=== PATIENT | female | born 1995 | race Caucasian/White ===

== ENCOUNTER 2017-03-27 02:59 | Observation (INO) ==
[2017-03-27] MEDS ORDERED: Clindamycin 900 MG/50 ML 900 MG/50 ML IV.SOLN IVPB ONE (06:30)
[2017-03-27] MEDS ORDERED: 0.9 % Sodium Chloride 1,000 ML IVC ONE (06:32)
[2017-03-27] MEDS ORDERED: *HR* HYDROmorphone (PF) 1 MG/ML SYRINGE IVP ONE (06:43)
[2017-03-27] MEDS ORDERED: Ondansetron 4 MG/2 ML VIAL IVP ONE (06:43)
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
[2017-03-27 07:10] LABS: Prothrombin Time 11.2 Seconds (9.4-12.1)
[2017-03-27 08:05] LABS: Basophils % 0.5 %; Eosinophils # 0.2 K/mcL (0.0-0.6); Eosinophils % 2.3 %; Hematocrit 35.1 % (35.3-44.9); Hemoglobin 11.7 g/dL (11.5-15.4); Immature Granulocytes % 0.3 % (0-4); Lymphocytes % 46.2 %; Mean Corpuscular HGB Conc 33.3 g/dL (31.6-35.5); Monocytes # 0.6 K/mcL (0.0-1.3); Monocytes % 9.2 %; Neutrophils # 2.7 K/mcL (1.6-8.9); Nucleated Red Blood Cells 0.3 /100 WBC (0); Platelet Count 302 K/mcL (140-400); Red Blood Count 4.18 M/mcL (3.82-4.97); Segmented Neutrophils % 41.5 %
[2017-03-27 08:19] LABS: BUN/Creatinine Ratio 20 (6-26); Blood Urea Nitrogen 10 mg/dL (6-20); Calcium 8.9 mg/dL (8.6-10.3); Carbon Dioxide 21 mEq/L (23-29); Chloride 109 mEq/L (98-107); Glucose 96 mg/dL (70-105); Osmolality,Calculated 285 (280-300); Sodium 138 mEq/L (136-145); eGFR For African Americans > 60 (> 60); eGFR For Non-African Americans > 60 (> 60)
--- NOTE | 2017-03-27 14:31 | Internal Med History&Physical ---
<Kishan Kapadia J - Last Filed: 03/27/17 15:13> Date of Encounter: 03/27/17 Time of Encounter: 14:25 Assessment and Plan (1) Otitis media Current visit: Yes Status: Acute Suppurative otitis media. Ct head on 03/25/17 show mastoiditis but no periostitis. Upon exam the external ear is mildly tender to palpation, external canal clear debris, foreign-body and/or drainage at this time. Internal ear kettle tender mildly erythematous. I was able to visualize tympanic membrane which appears swollen and erythematous and no drainage present at this time. I have contacted ENT Dr. Yusuf who recommends outpatient treatment with otic drops and oral ATB. I have made an appointment for this patient on 04/01/[address] Yusuf of ENT. She is being discharged home with Ciprofloxacin 500mg PO BID x5 days and ofloxacin otic drops 10ggt in Rt ear at . Qualifiers: Otitis media type: suppurative Chronicity: acute Laterality: left Recurrence: not specified as recurrent Spontaneous tympanic membrane rupture: with spontaneous rupture Qualified Code(s): H66.012 - Acute suppurative otitis media with spontaneous rupture of ear drum, left ear (2) Mastoiditis Current visit: Yes Status: Acute Qualifiers: Laterality: right Qualified Code(s): H70.91 - Unspecified mastoiditis, right ear Internal Medicine - H&P: HPI Chief complaint: ear pain, with yellow and blood drainage Admitted From: Home Plans for Post Hospital Care: Home History of present illness: Ms. Salmon is a 21 year old female with a PMH of PCO S/anxiety/chronic low back pain/multiple spine surgeries/factor V deficiency/DVTs/PE who presents to [facility] today with worsening right ear pain, fevers, chills, nausea and vomiting. She states that this is the third time she has been to the ED this week d/t continued ear pain. She was initially given azithromycin with no improvement, and the given keflex to which she had taken a total of 3 days with no improvement. Upon discharge from the ED she was told to make an appointment with ENT but she has yet to see them. She reports that the pain is increasing and now she is draining yellow and blood fluid from her rt ear. She was informed by Dr. Theo to return to the ED should her symptoms persist or worsen before her appointment with ENT. She admits to dizziness, h/a, ear pain, and fevers with a max temp of 101.2. She is being discharged home on oral ATB and otic gtts. See assessment and plan Past Med Surg Social Fam HX - Past Medical History Medical history: asthma, pulmonary embolus, other Psychiatric history: anxiety, depression, previous psychiatric hospitalization - Past Surgical History Surgical History: cholecystectomy, orthopedic, other, other - Social History Smoking Status: Never smoker Smokeless Tobacco Status: No Alcohol use: none Drug use: none - Family History Mother Age: 39 Living Status: Still Living Hx Family Cardiac Disorders: No Hx Family Respiratory Disorders: No Hx Family Cancer: No Hx Family GI Disorders: No Hx Family Genitourinary Disorders: No Hx Family Endocrine Disorder: No Hx Family Musculoskeletal Disorders: No Hx Family Neuromuscular Disorders: No Hx Family Neurologic Disorders: No Hx Family HEENT Disorders: No Internal Medicine - H&P: Meds Cephalexin [Keflex] 500 mg PO QID #14 capsule 03/25/17 [Rx] HYDROcodone/Acet 5/325 mg [[place] 5-325 mg] 1 tab PO Q4H PRN #10 tab 03/25/17 [Rx ] Apixaban [Eliquis] 5 mg PO BID 03/27/17 [History] Ciprofloxacin [Cipro] 500 mg PO BID #10 tablet 03/27/17 [Rx] Ofloxacin *EAR* Drops [Floxin] 10 drop RIGHT EAR HS #1 bottle 03/27/17 [Rx] 3 Allergy/AdvReac Type Severity Reaction Status Date / Time Amoxicillin Allergy Anaphylaxis Verified 03/27/17 08:05 fentanyl Allergy Hives Verified 03/25/17 02:22 orphenadrine [From Norflex] Allergy Hives Verified 03/25/17 02:22 pregabalin [From Lyrica] Allergy Hives Verified 03/25/17 02:22 dexamethasone [From Decadron] AdvReac Vomiting Verified 03/25/17 02:22 ketorolac [From Toradol] AdvReac Vomiting Verified 03/27/17 08:05 meloxicam [From Mobic] AdvReac Nausea Verified 03/25/17 02:22 plastic tape AdvReac Rash Uncoded 03/25/17 02:22 All Systems PM: A 10-system review of systems was performed and is negative for pertinent findings except as documented above in the HPI. Review of systems: REVIEW OF SYSTEMS GENERAL: Positive for nausea, vomiting which began this morning. Additionally she admits to chills and a fever with a max temperature of 101.2 NEUROLOGIC: Negative for any blurry vision, blind spots, double vision, facial asymmetry, dysphagia, dysarthria, hemiparesis, hemisensory deficits, vertigo, ataxia. HEENT: Negative for any head trauma, neck trauma, neck stiffness, photophobia, phonophobia, sinusitis, rhinitis, lymph node enlargement. Positive for right ear pain, yellow and bloody drainage. Positive for right jaw and neck pain. CARDIAC: Negative for any chest pain, dyspnea on exertion, paroxysmal nocturnal dyspnea, peripheral edema. PULMONARY: Negative for any shortness of breath, wheezing, COPD, or TB exposure. GASTROINTESTINAL: Negative for any abdominal pain, nausea, vomiting, bright red blood per rectum, melena. GENITOURINARY: Negative for any dysuria, hematuria, incontinence. INTEGUMENTARY: Negative for any rashes, cuts, insect bites. RHEUMATOLOGIC: Negative for any joint pains, photosensitive rashes, history of vasculitis or kidney problems. HEMATOLOGIC: Negative for any abnormal bruising, frequent infections or bleeding. - Constitutional Vitals: Temp Pulse Resp BP Pulse Ox 97.3 F L 93 17 112/72 99 03/27/17 10:37 03/27/17 10:37 03/27/17 10:37 03/27/17 10:37 03/27/17 10:37 General appearance: Present: cooperative, mild distress, A&O X 3, answers questions appropriately - Head Head exam: Present: atraumatic, normocephalic - Eye Eye exam: Present: PERRL, conjuntiva pink, sclera anicteric Pupils: Present: PERRL - ENT ENT exam: Present: mucous membranes moist, normal external ear exam, normal oropharynx - Expanded ENT Exam bulging: Right TM, canal discharge: Right TM, canal tenderness: Right TM, loss of landmarks: Right TM - Neck Neck exam general surgery: Present: tenderness (Right neck and right jaw), supple, trachea midline. Absent: lymphadenopathy - Respiratory Respiratory exam: Present: CTAB. Absent: accessory muscle use, rales, rhonchi, wheezes - Cardiovascular Cardiovascular exam: Present: RRR, +S1, +S2. Absent: diastolic murmur, gallop, rubs, systolic murmur - GI/Abdominal GI/Abdominal exam: Present: normal bowel sounds, soft, no peritoneal signs. Absent: distended, tenderness - Extremities Exam Extremities exam: Present: warm, radial pulses palpable and symmetrical. Absent : calf tenderness, cyanotic, pedal edema - Neurological Exam Neurological exam: Present: alert, oriented X3. Absent: pronater drift, facial droop, speech deficit Internal Med - H&P Results - Labs CBC & Chem 7: 03/27/17 07:59 03/27/17 07:59 Labs: Short CBC 03/27/17 Range/Units 07:59 WBC 6.5 (4.3-11.1) K/mcL Hgb 11.7 (11.5-15.4) g/dL Hct 35.1 L (35.3-44.9) % Plt Count 302 (140-400) K/mcL Neutrophils # 2.7 (1.6-8.9) K/mcL BMP 03/27/17 07:59 Sodium 138 Potassium 5.0 Chloride 109 H Carbon Dioxide 21 L BUN 10 Creatinine 0.51 L Glucose 96 Calcium 8.9 <Don Go T - Last Filed: 03/27/17 16:00> Date of Encounter: 03/27/17 Internal Medicine - H&P: HPI History of present illness: Ms. Salmon is a 21 year old female All Systems PM: A 10-system review of systems was performed and is negative for pertinent findings except as documented above in the HPI. - Constitutional Vitals: Temp Pulse Resp BP Pulse Ox 98.3 F 100 16 116/79 98 03/27/17 15:27 03/27/17 15:27 03/27/17 15:27 03/27/17 15:27 03/27/17 15:27 Internal Med - H&P Results - Labs CBC & Chem 7: 03/27/17 07:59 03/27/17 07:59 Labs: Short CBC 03/27/17 Range/Units 07:59 WBC 6.5 (4.3-11.1) K/mcL Hgb 11.7 (11.5-15.4) g/dL Hct 35.1 L (35.3-44.9) % Plt Count 302 (140-400) K/mcL Neutrophils # 2.7 (1.6-8.9) K/mcL BMP 03/27/17 07:59 Sodium 138 Potassium 5.0 Chloride 109 H Carbon Dioxide 21 L BUN 10 Creatinine 0.51 L Glucose 96 Calcium 8.9 - Attending Attestation I examined this patient on 03/27/17 and my medical decision-making was reviewed with the Certified nurse practitioner. I agree with the documented findings, disposition and treatment plan as described except to the extent set forth below. Patient with right OM, no sepsis, no SIRS, afebrile, no leukocytosis, head CT does not show ENT plans no intervention, recommends po meds, discharge patient home, educated on need for compliance with antibiotics, patient seems more obsessed with pain meds at this time. Follow up with ENT on 04/01
[2017-03-27 15:28] VITALS: BP 116/79
== END 2017-03-27 16:16 | disposition home or self-care (01) ==
LOC: EMEROO 02:59 → 3BNU 02:59
PROVIDERS: ADMIT Internal Medicine; ATTEND Registered Nurse

== ENCOUNTER → 2018-06-21 14:42 | Observation (INO) ==
[2018-06-21 13:50] LABS: Bilirubin,Urine Negative (Negative); Blood,Urine Negative (Negative); Clarity,Urine Clear (Clear); Color,Urine Yellow (Yellow); Glucose,Urine (UA) Normal (Normal); Ketones,Urine Negative (Negative); Leukocyte Esterase,Urine Moderate (Negative); Nitrite,Urine Negative (Negative); Protein,Urine Negative (Neg-Trace); Specific Gravity,Urine 1.018 (1.010-1.025); Urobilinogen,Urine Normal (Normal)
[2018-06-21 13:52] LABS: Bacteria,Urine None Seen per hpf (None-Few); Hyaline Casts,Urine None Seen per lpf (None-Few); RBC,Urine 0-3 per hpf (0-3); Squamous Epithelial Cell,Urine Many per lpf (None-Few); WBC,Urine 15-30 per hpf (0-3)
[2018-06-21 14:04] LABS: Amphetamine Screen,Urine Negative ng/mL (Cutoff=1000); Barbiturate Screen,Urine Negative ng/mL (Cutoff=200); Benzodiazepines Screen,Urine Negative ng/mL (Cutoff=200); Cannabinoid Screen,Urine Negative ng/mL (Cutoff = 50); Cocaine Screen,Urine Negative ng/mL (Cutoff= 300); Opiate Screen,Urine Negative ng/mL (Cutoff=300); Phencyclidine Screen,Urine Negative ng/mL (Cutoff=25)
--- NOTE | 2018-06-21 14:36 | OB/GYN Progress Note ---
Date of Encounter: 06/21/18 Time of Encounter: 14:34 Objective - Vital Signs Vital Signs: Intake and Output 06/20/18 06/21/18 06/21/18 23:59 07:59 15:59 Other: Weight 81.3 kg Patient Weight 06/21/18 23:59 Weight 81.3 kg - Labs Labs: Abnormal lab results Ur Leukocyte Esterase Moderate (Negative) H 06/21/18 13:30 Urine Microscopic WBC 15-30 per hpf (0-3) H 06/21/18 13:30 Ur Squamous Epith Cells Many per lpf (None-Few) H 06/21/18 13:30 Ur Culture Indicated? NO. (NO) A 06/21/18 13:30
--- NOTE | 2018-06-21 14:57 | OB/GYN Progress Note ---
Date of Encounter: 06/21/18 Time of Encounter: 14:55 - Assessment and Plan (1) 27 weeks gestation of Status: Acute (2) uterine contractions in second trimester, antepartum Status: Acute Cervix closed thick and high, discharged home with labor and when to return to triage precautions. Patient verbalizes understanding Subjective - Subjective Interval history: 27+3 weeks gestation reports to triage with complaints of contractions. Patient states she was having contractions every 3 minutes last night, has decreased in intensity and frequency during the day and hourly happening occasionally. Reports good movement, denies vaginal bleeding or leaking of fluid Antepartum ROS: movement normal, contractions, no loss of fluid, no vaginal bleeding Objective - Vital Signs Vital Signs: Intake and Output 06/20/18 06/21/18 06/21/18 23:59 07:59 15:59 Other: Weight 81.3 kg Patient Weight 06/21/18 23:59 Weight 81.3 kg - Exam FHR comments: Baseline 140 Cervical dilation: Closed/thick/high - Labs Labs: Abnormal lab results Ur Leukocyte Esterase Moderate (Negative) H 06/21/18 13:30 Urine Microscopic WBC 15-30 per hpf (0-3) H 06/21/18 13:30 Ur Squamous Epith Cells Many per lpf (None-Few) H 06/21/18 13:30 Ur Culture Indicated? NO. (NO) A 06/21/18 13:30
== END | disposition home or self-care (01) ==
LOC: 1NENULAB
PROVIDERS: ADMIT Advanced Practice Midwife; ATTEND Advanced Practice Midwife

== ENCOUNTER → 2018-08-05 01:45 | Observation (INO) ==
--- NOTE | 2018-08-05 01:09 | OB/GYN Progress Note ---
Date of Encounter: 08/05/18 Time of Encounter: 01:05 - Assessment and Plan (1) 33 weeks gestation of Current Visit: Yes Status: Acute (2) Abdominal pain affecting Current Visit: Yes Status: Acute rare contractions on toco. SVE closed. UA + nitrites. Discharge home with Keflex rx. Return precautions given. (3) Acute cystitis during in third trimester Current Visit: Yes Status: Acute UA with +nitrites. Discharge home with rx. Subjective - Subjective Interval history: 23 year-old G1 presenting at 33w6d with c/o cramping, pelvic pressure, and lumps in both breasts. She denies leaking or bleeding. No change in movement. Breasts also have some yellow fluid leaking bilaterally. No significant redness or warmth. No fevers. She reports the cramping pain started last evening and is maybe 3-4 times per hour. She also has constant pelvic pressure. complicated by history of IV drug use now on subutex, Factor 5, history of PE, anxiety. Antepartum ROS: movement normal, contractions, no loss of fluid, no vaginal bleeding Objective - Vital Signs Vital Signs: Intake and Output 08/04/18 08/04/18 08/05/18 15:59 23:59 07:59 Other: Weight 88.054 kg Patient Weight 08/05/18 23:59 Weight 88.054 kg - Exam FHR: category 1 FHR comments: 140 BPM, reactive NST Auscultation: bilateral: normal Abdomen: Present: soft, gravid Uterus: Absent: tenderness Cervical dilation: closed/50/high Comments: Breasts with some filling, no s/sx mastiits, no isolated lumps.
[2018-08-05 01:10] LABS: Bilirubin,Urine Negative (Negative); Blood,Urine Negative (Negative); Clarity,Urine Cloudy (Clear); Color,Urine Yellow (Yellow); Glucose,Urine (UA) Normal (Normal); Ketones,Urine Negative (Negative); Leukocyte Esterase,Urine Moderate (Negative); Nitrite,Urine Positive (Negative); PH,Urine 6.5 pH Units (5.0-8.0); Protein,Urine Negative (Neg-Trace); Specific Gravity,Urine < 1.005 (1.010-1.025); Urobilinogen,Urine Normal (Normal)
[2018-08-05 01:13] LABS: Bacteria,Urine Few per hpf (None-Few); Hyaline Casts,Urine None Seen per lpf (None-Few); RBC,Urine 0-3 per hpf (0-3); Squamous Epithelial Cell,Urine Many per lpf (None-Few)
[2018-08-05 01:19] LABS: Amphetamine Screen,Urine Negative ng/mL (Cutoff=1000); Barbiturate Screen,Urine Negative ng/mL (Cutoff=200); Benzodiazepines Screen,Urine Negative ng/mL (Cutoff=200); Cannabinoid Screen,Urine Negative ng/mL (Cutoff = 50); Cocaine Screen,Urine Negative ng/mL (Cutoff= 300); Opiate Screen,Urine Negative ng/mL (Cutoff=300); Phencyclidine Screen,Urine Negative ng/mL (Cutoff=25)
[2018-08-05 01:22] LABS: WBC,Urine 15-30 per hpf (0-3)
== END | disposition home or self-care (01) ==
LOC: 1NENULAB
PROVIDERS: ADMIT Registered Nurse; ATTEND Registered Nurse

== ENCOUNTER 2018-08-31 19:53 | Observation (INO) ==
[2018-08-31 20:42] LABS: Amphetamine Screen,Urine Negative ng/mL (Cutoff=1000); Barbiturate Screen,Urine Negative ng/mL (Cutoff=200); Benzodiazepines Screen,Urine Negative ng/mL (Cutoff=200); Cannabinoid Screen,Urine Negative ng/mL (Cutoff = 50); Cocaine Screen,Urine Negative ng/mL (Cutoff= 300); Opiate Screen,Urine Negative ng/mL (Cutoff=300); Phencyclidine Screen,Urine Negative ng/mL (Cutoff=25)
--- NOTE | 2018-08-31 21:30 | OB/GYN Progress Note ---
Date of Encounter: 09/06/18 Time of Encounter: 21:25 - Assessment and Plan (1) Decreased movement Status: Acute Meghan is a 23 y/o @ 37+3 weeks, Decreased FM, Left calf pain, Heterozygous 5 Leiden mutation(on Lovenox 80mg BID) Plan: patient reports that when she presented to L&D, she started feeling movement, NST reactive, she reported left calf pain, I examined her and both calves are symmetric without erythema or warmth, dopplers done and normal ok for discharge to follow up outpatient Qualifiers: Fetus number: single or unspecified fetus Trimester: third trimester Qualified Code(s): O36.8130 - Decreased movements, third trimester, not applicable or unspecified Objective - Vital Signs Vital Signs: Intake and Output 08/31/18 08/31/18 08/31/18 07:59 15:59 23:59 Other: Weight 89.6 kg Patient Weight 08/31/18 23:59 Weight 89.6 kg
== END 2018-08-31 23:20 | disposition home or self-care (01) ==
LOC: 1NENULAB
PROVIDERS: ADMIT Student in an Organized Health Care Education/Training Program; ATTEND Student in an Organized Health Care Education/Training Program

== ENCOUNTER 2018-09-10 03:36 | Inpatient (IN) ==
[2018-09-10] MEDS ORDERED: Metoclopramide 10 MG/2 ML VIAL IVP PRN (03:49)
[2018-09-10] MEDS ORDERED: Ondansetron 4 MG/2 ML VIAL IVP PRN (03:49)
[2018-09-10] MEDS ORDERED: Famotidine 20 MG/2 ML VIAL IVP PRN (03:49)
[2018-09-10] MEDS ORDERED: Naloxone 0.4 MG/ML INJ IVP PRN (03:49)
[2018-09-10] MEDS ORDERED: Ringers Solution, Lactated 1,000 ML IVC SCH (04:00)
[2018-09-10] MEDS ORDERED: Oxytocin 20 units/ LR 1000 mL 20 UNIT/1,000 ML BAG IVC SCH ×2 (04:00→16:47)
[2018-09-10 04:49] LABS: Basophils % 0.2 %; Eosinophils # 0.3 K/mcL (0.0-0.6); Eosinophils % 2.8 %; Hematocrit 36.3 % (35.3-44.9); Immature Granulocytes % 0.8 % (0-4); Lymphocytes # 2.9 K/mcL (0.6-4.6); Lymphocytes % 24.3 %; Mean Corpuscular HGB Conc 33.1 g/dL (31.6-35.5); Mean Corpuscular Hemoglobin 28.9 pg (28.0-33.3); Mean Corpuscular Volume 87.5 fL (83.0-100.0); Mean Platelet Volume 10.7 fL (9.4-12.4); Monocytes # 0.8 K/mcL (0.0-1.3); Neutrophils # 7.7 K/mcL (1.6-8.9); Platelet Count 267 K/mcL (140-400); Red Blood Count 4.15 M/mcL (3.82-4.97); Red Cell Distribution Width 12.9 % (11.5-14.5); Segmented Neutrophils % 64.9 %; White Blood Count 11.8 K/mcL (4.3-11.1)
[2018-09-10] MEDS: miSOPROStol 25 MCG TABLET VG PRN ×2 (04:56→09:10)
[2018-09-10 04:59] LABS: Amphetamine Screen,Urine Negative ng/mL (Cutoff=1000); Barbiturate Screen,Urine Negative ng/mL (Cutoff=200); Benzodiazepines Screen,Urine Negative ng/mL (Cutoff=200); Cannabinoid Screen,Urine Negative ng/mL (Cutoff = 50); Cocaine Screen,Urine Negative ng/mL (Cutoff= 300); Opiate Screen,Urine Negative ng/mL (Cutoff=300); Phencyclidine Screen,Urine Negative ng/mL (Cutoff=25)
--- NOTE | 2018-09-10 05:15 | Event Note ---
Date of Encounter: 09/10/18 Time of Encounter: 05:13 Discussed cervical ochoa balloon placement for induction, patient agrees to proceed along with vaginal cytotec. Double cervical ochoa balloon placed with minimal difficulty. 60mL instilled into uterine balloon, 60mL instilled into vaginal balloon. Patient tolerated without difficulty.
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
--- NOTE | 2018-09-10 07:42 | Anesthesia Evaluation PreOp ---
Date of Encounter: 09/10/18 Time of Encounter: 07:40 - Past History Planned Operation: Induction/GETA Cardiac History: Denies any Significant Hx Pulmonary History: Denies Any Significant HX BUSINESS SOLUTION ANALYST History: Denies Any Significant HX Other Medical History: Bleeding (Factor V Leiden, Multipe PE's, Drug abuse, on Subutex) Anesthesia History: No Prior Anesthetic Complications, Past Anesthesia (Gallbladder, Back surgeries x3) : Yes (39weeks) Alcohol Use: none Drug use: none, cocaine, opiates, marijuana, methamphetamine, IV Drug Use, prescription drug abuse Medications and Allergies Buprenorphine HCl [Subutex] 10 mg SL BID 06/03/18 [History] Enoxaparin [Lovenox] 80 mg SQ Q12HR 07/08/18 [History] Allergy/AdvReac Type Severity Reaction Status Date / Time amitriptyline Allergy See Verified 09/10/18 04:11 Comments Amoxicillin Allergy Anaphylaxis Verified 07/08/18 22:12 baclofen Allergy See Verified 09/10/18 04:13 Comments citalopram [From Celexa] Allergy Vomiting Verified 09/10/18 04:13 duloxetine [From Cymbalta] Allergy Nausea Verified 09/10/18 04:13 fentanyl Allergy Hives Verified 07/08/18 22:12 gabapentin [From Neurontin] Allergy Nausea Verified 09/10/18 04:13 orphenadrine [From Norflex] Allergy Hives Verified 07/08/18 22:12 pregabalin [From Lyrica] Allergy Hives Verified 07/08/18 22:12 dexamethasone [From Decadron] AdvReac Vomiting Verified 07/08/18 22:12 ketorolac [From Toradol] AdvReac Vomiting Verified 07/08/18 22:12 meloxicam [From Mobic] AdvReac Nausea Verified 07/08/18 22:12 AMITR Allergy See Uncoded 09/10/18 04:11 Comments plastic tape AdvReac Rash Uncoded 07/08/18 22:12 - Meds/Allergy Pre-op Review Medications Reviewed: Yes Allergies Reviewed: Yes Beta Blockers on Current Med List: No Anesthesia Results - Labs 09/10/18 04:15 Anesthesia Exam O2 Sat Height 1.68 m Weight 89.267 kg Vital Signs Temp Pulse Resp BP 98.2 F 77 15 123/84 09/10/18 03:49 09/10/18 03:49 09/10/18 03:49 09/10/18 03:49 NPO (# of Hours): 5 Pain Scale: 2 Pain Scale Used: Numeric (1 - 10) - HEENT Pupil (Motor): Pupils equal Mallampati: II Teeth: Normal Oral Opening: Greater than 3 - BUSINESS SOLUTION ANALYST LOC: Oriented BUSINESS SOLUTION ANALYST Motor: Normal RUE, Normal LUE, Normal RLE, Normal LLE, Normal Face BUSINESS SOLUTION ANALYST Sensory: Normal: RUE, LUE, RLE, LLE, Face - Cardiac Rhythm: Regular Murmur: None JVD: No Carotid Bruit: No - Pulmonary Breath Sounds: bilateral Clear Respiratory Effort: Symmetrical Anesthesia Assess/Plan ASA Score: 3 (Factor V, Drug Abuse, PEs) Level of consciousness: Cooperative, Oriented Anesthetic Plan: General (Pt understands all risks and benefits of GETA/all questions answered/ understands why no epidural or spinal can be done given the risks/understands need for general if a c/s would be done) Reason for No Neuroaxial/Regional Block: Other (See below) Autologous Blood: Yes Monitoring Plan: Standard Monitors Recovery Plan: PACU Anes Supervising Prov Stmt: NOTE FROM DR. KESSLER CONSULT 07/29/18 13:18 Patent is a 23 y/o female EDC 09/16/2018, who presents for Anesthesia consult concerning epidural anesthesia for anticipated vaginal delivery. Patient states that she has had 3 prior lumbar/sacral spine surgeries.The first surgery was a L 4/5 Laminectomy in 2011, followed by an L5/S1 laminectomy, and a L5/S1 instrumented Fusion. Scar formation from the surgeries appear to start at L2/3 and end below L5. She also states that she still has numbness from her Left buttock down her Left leg to Left ankle. She was told that an epidural would not be advisable due to her altered anatomy from the prior surgeries and the fact that she is still symptomatic with radiculopathy, and more damage could be done by performing that procedure. If a was necessary A General Anesthetic would be performed. Patient understood risks of the procedure and agreed with decision not to have epidural for delivery.
[2018-09-10] MEDS ORDERED: *HR* Buprenorphine HCl 8 MG TAB.SUBL SL SCH ×2 (09:00→15:00)
--- NOTE | 2018-09-10 11:24 | OB Labor Progress Note ---
Date of Encounter: 09/10/18 Time of Encounter: 11:22 Labor Progress Note - Subjective Subjective: Patient is in pain, given subutex @ 9AM, cytotec #2 also given. Per Anesthesia, she'll not receive epidural because of the rods in her back. - Vital Signs Vital Signs: VSS - Cervix Cervix: ochoa in place, tugged and still in tightly - Heart Tones Heart Tones: 130/mod yarelis/+accels, no decels - Captiva Captiva: irreg - Interventions Interventions: Continue monitoring the strip, I'm concerned about the patient's pain tolerance since she has been told no epidural and no narcotics, I'll continue to monitor her progress, FHT CAT 1
[2018-09-10] MEDS ORDERED: Ondansetron 4 MG/2 ML VIAL ONE (12:43)
[2018-09-10] MEDS ORDERED: Dexamethasone 4 MG/ML VIAL ONE (12:43)
[2018-09-10] MEDS ORDERED: *HR* Propofol 200 MG/20 ML VIAL IVP ONE (12:44)
[2018-09-10] MEDS ORDERED: *HR* Rocuronium Bromide 50 MG/5 ML VIAL ONE (12:45)
[2018-09-10] MEDS ORDERED: *HR* Succinylcholine 200 MG/10 ML VIAL IVP ONE (12:45)
[2018-09-10] MEDS ORDERED: Lidocaine -MPF 2% 5 ML VIAL ONE (12:45)
[2018-09-10] MEDS ORDERED: Ringers Solution, Lactated 1,000 ML ONE (12:46)
[2018-09-10] MEDS ORDERED: *HR* Oxytocin 10 UNIT/ML VIAL IM ONE (12:46)
--- NOTE | 2018-09-10 12:49 | OB Labor Progress Note ---
Date of Encounter: 09/10/18 Time of Encounter: 12:47 Labor Progress Note - Subjective Subjective: Was called into the room because the patient was crying that she could not take the pain anymore and wants a section. - Vital Signs Vital Signs: VSS - Cervix Cervix: Florez bulb still tightly placed but removed upon request - Heart Tones Heart Tones: 125/mod yarelis/+accels, no decels - [place]: irreg - Interventions Interventions: I sympathized with the patient since she can't receive opiods because of her Subutex and Anesthesia will not give epidural because of the rods in her back, discussed and consents signed along with risks, Anesthesia informed, will proceed to
[2018-09-10] MEDS ORDERED: Ketamine *HR* 500 MG/10 ML MDV ONE (13:38)
[2018-09-10] MEDS ORDERED: *HR* Midazolam HCl 2 MG/2 ML VIAL ONE (13:39)
--- NOTE | 2018-09-10 14:23 | OB/GYN Procedure Note ---
OB-HAND CROCHETER: Procedure - Diagnosis Date of procedure: 09/10/18 Pre-op diagnosis: section on maternal request, inability to tolerate pain Post-op diagnosis: same - Procedure Procedure: Primary ection
[2018-09-10] MEDS ORDERED: Acetaminophen IV 1,000 MG/100 ML INFUS..BTL IVPB ONE (14:25)
[2018-09-10] MEDS ORDERED: traMADol 50 MG TABLET PO PRN ×2 (14:25→15:22)
--- NOTE | 2018-09-10 14:25 | OB/GYN Procedure Note ---
Section - Date of procedure: 09/10/18 Preop diagnosis: other ( section per maternal request, inability to tolerate pain) Post-op diagnosis: same Procedure: section, primary low transverse Surgeon: Rhoda Meyers Quantitated Blood Loss: 600 Was there an commercial loan assistant present: Yes Supervising Chef: Prabhjot Bentley Anesthesia Type: General section complications: none Disposition: L&D Recovery Room Specimens: Placenta, Cord blood - (s) Infant A Delivery Date: 09/10/18 Infant Delivery Time: 13:34 Presentation: vertex Gender: Male Gram Weight: 2.99 kg at 1 minute: 8 at 5 minutes: 9 Shoulder Dystocia: not encountered Specimens collected: cord blood Placenta: complete extraction - Narrative Narrative: After the patient was brought to the OR, she was prepped and draped in normal fashion, in the supine position, for surgery. After timeout, she was then placed under general anesthesia. A Pfannenstiel incision was then made using a scalpel and carried through the subcutaneous tissue and fascial layers. The fascia was elevated using Kochers x2 and the rectus abdominus muscles were dissected from the fascia using blunt dissection. The recti were in the midline and the parietal peritoneum was entered bluntly. A bladder blade was placed and a lo w transverse uterine incision was made using a scalpel. Amniotomy was created with clear fluid. The incision was extended manually. The was delivered atraumatically. The babys mouth and nose were suctioned using bulb suction. The cord was clamped x2 and cut. The baby was handed off to the awaiting nurse. Cord blood was obtained x1. Vessels were identified x3. The placenta was delivered intact. Products of conception were removed using a clean dry lap. The uterus was closed in 2 layers of 0 Vicryl, the first being a continuous interlocking stitch, the second of which imbricated the first. Adequate hemostasis was realized. The fascial layer was closed using #0-vicryl. Subcutaneous tissue was closed with 3-0 vicryl. The skin was closed with a subcuticular stitch of 4-0 Vicryl. Sponge, lap, needle and instrument counts were all completely correct at the end of the procedure. Estimated blood loss was 600 mL. The patient and tolerated the procedure fairly well.
[2018-09-10] MEDS ORDERED: Acetaminophen 325 MG TABLET PO PRN (16:47)
[2018-09-10] MEDS ORDERED: Rho Immune Globulin 1,500 UNIT SYRINGE IM PRN (16:47)
[2018-09-10] MEDS ORDERED: Measles/Mumps/Rubella Vacc 0.5 ML VIAL SQ PRN (16:47)
--- NOTE | 2018-09-10 17:04 | Anesthesia Evaluation Post Op ---
Date of Encounter: 09/10/18 Time of Encounter: 17:03 - Lungs Lungs: Clear Ascult./Percussion - Airway Airway: Non-obstructed - Cardiovascular Regular Rate, Baseline Rhythm - Mental Status Mental Status: Alert & Oriented, Answers Appropriately - Pain Pain Scale: 10 Pain Scale used: Numeric (1 - 10) - Nausea Vomiting Nausea Vomiting: Not Present - Hydration Hydration: NPO, Florez catheter - Discharge PostOp Status: Transfer Patient to floor
[2018-09-10] MEDS: Ketorolac 30 MG/ML VIAL IVP SCH ×2 (17:37→23:41)
[2018-09-10] MEDS: *HR* Buprenorphine HCl 2 MG SUBLINGUAL TABLET SL SCH (20:30)
[2018-09-11] MEDS: Acetaminophen 325 MG TABLET PO PRN ×3 (01:20→21:39)
[2018-09-11] MEDS ORDERED: *HR* OxyCODONE/APAP 5/325 TABLET PO ONE (04:10)
[2018-09-11] MEDS: Ketorolac 30 MG/ML VIAL IVP SCH ×4 (06:14→23:44)
[2018-09-11 06:20] LABS: Basophils % 0.1 %; Eosinophils % 0.2 %; Hematocrit 29.6 % (35.3-44.9); Hemoglobin 9.9 g/dL (11.5-15.4); Immature Granulocytes % 0.4 % (0-4); Lymphocytes % 6.5 %; Mean Corpuscular HGB Conc 33.4 g/dL (31.6-35.5); Mean Corpuscular Hemoglobin 29.6 pg (28.0-33.3); Mean Corpuscular Volume 88.4 fL (83.0-100.0); Mean Platelet Volume 10.3 fL (9.4-12.4); Monocytes # 0.7 K/mcL (0.0-1.3); Monocytes % 4.5 %; Neutrophils # 13.7 K/mcL (1.6-8.9); Platelet Count 226 K/mcL (140-400); Red Blood Count 3.35 M/mcL (3.82-4.97); Red Cell Distribution Width 13.1 % (11.5-14.5); Segmented Neutrophils % 88.3 %; White Blood Count 15.5 K/mcL (4.3-11.1)
[2018-09-11] MEDS: Prenatal Vit/FA 1 EACH TABLET PO SCH (07:45)
[2018-09-11] MEDS: *HR* Buprenorphine HCl 8 MG TAB.SUBL SL SCH ×2 (07:45→14:56)
[2018-09-11] MEDS ORDERED: Sennosides 8.6 MG TABLET PO PRN (08:58)
[2018-09-11] MEDS ORDERED: Ondansetron 4 MG/2 ML VIAL IVP PRN (08:58)
[2018-09-11] MEDS ORDERED: Simethicone 80 MG TAB.CHEW PO PRN (08:58)
[2018-09-11] MEDS ORDERED: Metoclopramide 10 MG/2 ML VIAL IVP PRN (08:58)
[2018-09-11] MEDS ORDERED: Oxytocin 20 units/ LR 1000 mL 20 UNIT/1,000 ML BAG IVC SCH (09:00)
--- NOTE | 2018-09-11 09:19 | OB/GYN Progress Note ---
Date of Encounter: 09/11/18 Time of Encounter: 09:17 - Assessment and Plan (1) Status post primary low transverse section Current Visit: Yes Status: Acute Patient is not meeting pain management milestones - continued subutex and added percocet and ibuprofen Will re-evaluate pain later today Anticipate d/c tomorrow. (2) Acute blood loss as cause of postoperative anemia Current Visit: Yes Status: Acute Continue Iron supplementation daily (3) Opiate addiction Current Visit: Yes Status: Acute Continue subutex as prescribed Qualifiers: Substance use status: in remission Qualified Code(s): F11.21 - Opioid dependence, in remission Subjective - Subjective Principal diagnosis: s/p PLTCS Interval history: Feeling not well. Out of bed without dizziness. Major abdominal discomfort- using binder. Cramping minimal, using ibuprofen and subtuex. every 2-3 hours. Some nipple soreness. Voiding via urinary catheter. Passing flatus, no BM yet. Tolerating clear liquid diet. Patient reports: appetite normal, pain poorly controlled, ambulating normally, no voiding normally, no pain well controlled : doing well, nursing well Objective - Vital Signs Latest vital signs: Vital Signs Temp Pulse Resp BP Pulse Ox 09/11/18 08:04 98.7 F 109 20 104/68 98 09/11/18 04:00 99.6 F 96 14 118/78 100 09/11/18 00:00 99.0 F 88 14 116/75 100 09/10/18 20:00 98.6 F 93 14 119/79 98 09/10/18 18:59 99.0 F 98 16 104/43 09/10/18 18:11 98.4 F 86 16 122/76 09/10/18 17:30 98.7 F 78 16 116/76 98 09/10/18 17:00 98.8 F 75 16 123/76 97 Intake and Output 09/10/18 09/11/18 09/11/18 23:59 07:59 15:59 Intake Total 1780 / 1780 Output Total 350 / 750 990 / 990 Balance -350 / -510 790 / 790 Intake: Oral 780 / 780 Other 1000 / 1000 Output: Catheter 350 / 750 990 / 990 Other: Stool Characteristics Normal for Patient Weight 86.2 kg 85.729 kg Patient Weight 09/11/18 23:59 Weight 85.729 kg - Exam Lungs: bilateral: normal Chest: Normal S1, Normal S2 Extremities: Present: normal Abdomen: Present: normal appearance, soft Incision: Present: normal, dry, intact, dressed Uterus: Present: normal, firm Fundal Height: 0 (midline) - Labs Labs: Laboratory Results - last 24 hr 09/11/18 06:02 WBC 15.5 H RBC 3.35 L Hgb 9.9 L D Hct 29.6 L MCV 88.4 MCH 29.6 MCHC 33.4 RDW 13.1 Plt Count 226 MPV 10.3 Immature Gran % 0.4 Seg Neutrophils % 88.3 Lymphocytes % 6.5 Monocytes % 4.5 Eosinophils % 0.2 Basophils % 0.1 Neutrophils # 13.7 H Lymphocytes # 1.0 Monocytes # 0.7 Eosinophils # 0.0 Basophils # 0.0
[2018-09-11] MEDS: *HR* OxyCODONE/APAP 5/325 TABLET PO PRN ×4 (09:44→23:44)
[2018-09-11] MEDS ORDERED: Etonogestrel 68 MG IMPLANT IL ONE ×2 (09:56→16:03)
[2018-09-11] MEDS ORDERED: Lidocaine -MPF 1% 5 ML AMPUL INFILT ONE ×2 (09:56→16:04)
--- NOTE | 2018-09-11 18:45 | Procedure Note ---
Date of procedure: 09/11/18 Pre-op diagnosis: desires LARC Post-op diagnosis: other (Nexplanon placed) Procedure: Informed consent was obtained and time out performed. Patient was placed in the supine position with arm in the appropriate position. Betadine was used to prep the arm in a sterile fashion. 1% lidocaine with epinephrine was used to anesthetize. The implant was inserted in the subcutaneous tissue to the appropriate length then the Nexplanon was released. Both myself and patient can palpate the marco without difficulty. Steri-Strips and a pressure dressing was applied. Patient tolerated the procedure well. She was instructed on wound care to follow up PRN. Anesthesia: local (3mL lidocaine) Was there an commercial real estate assistant present: No Estimated blood loss (cc): 0 Specimen: none Pathology: none sent Condition: stable Disposition: no change
[2018-09-11] MEDS: *HR* Buprenorphine HCl 2 MG SUBLINGUAL TABLET SL SCH (20:48)
[2018-09-12] MEDS: Ibuprofen 600 MG TABLET PO PRN ×4 (00:08→18:53)
[2018-09-12] MEDS: *HR* OxyCODONE/APAP 5/325 TABLET PO PRN ×5 (04:01→20:26)
[2018-09-12 07:17] LABS: Basophils % 0.1 %; Eosinophils # 0.4 K/mcL (0.0-0.6); Eosinophils % 2.7 %; Hematocrit 29.8 % (35.3-44.9); Hemoglobin 9.9 g/dL (11.5-15.4); Immature Granulocytes % 0.5 % (0-4); Lymphocytes # 2.6 K/mcL (0.6-4.6); Mean Corpuscular HGB Conc 33.2 g/dL (31.6-35.5); Mean Corpuscular Hemoglobin 29.6 pg (28.0-33.3); Mean Corpuscular Volume 89.2 fL (83.0-100.0); Mean Platelet Volume 10.5 fL (9.4-12.4); Monocytes # 0.9 K/mcL (0.0-1.3); Monocytes % 6.6 %; Neutrophils # 9.5 K/mcL (1.6-8.9); Platelet Count 257 K/mcL (140-400); Red Blood Count 3.34 M/mcL (3.82-4.97); Red Cell Distribution Width 13.7 % (11.5-14.5); Segmented Neutrophils % 71.1 %; White Blood Count 13.4 K/mcL (4.3-11.1)
[2018-09-12] MEDS: *HR* Buprenorphine HCl 8 MG TAB.SUBL SL SCH ×2 (07:45→15:01)
[2018-09-12] MEDS: Prenatal Vit/FA 1 EACH TABLET PO SCH (07:45)
--- NOTE | 2018-09-12 09:30 | OB/GYN Progress Note ---
Date of Encounter: 09/12/18 Time of Encounter: 09:29 - Assessment and Plan (1) Status post primary low transverse section Current Visit: Yes Status: Acute Stable POD#2 pain well managed Continue current management Anticipate discharge tomorrow Subjective - Subjective Interval history: Stable, pain well managed on po pain medication, bleeding minimal, tolerates diet, +flatus Patient reports: appetite normal, voiding normally, pain well controlled [place]: doing well Objective - Vital Signs Latest vital signs: Vital Signs Temp Pulse Resp BP Pulse Ox 09/12/18 07:52 97.9 F 91 16 101/65 98 09/12/18 00:00 98.0 F 96 16 115/78 100 09/11/18 19:45 98.5 F 94 16 114/69 98 09/11/18 11:26 98 F 97 20 117/76 97 Intake and Output 09/11/18 09/12/18 09/12/18 23:59 07:59 15:59 Intake Total 300 / 2420 Output Total 500 / 2390 Balance -200 / 30 Intake: Free Water 300 / 400 Output: Urine 500 / 1100 Other: Meal Dinner Percent of Meal Consumed 50% Weight 86.636 kg Patient Weight 09/12/18 23:59 Weight 86.636 kg - Exam Lungs: bilateral: normal Chest: Normal S1, Normal S2 Abdomen: Present: normal appearance, soft Incision: Present: intact Uterus: Present: firm (U) - Labs Labs: Laboratory Results - last 24 hr 09/12/18 07:06 WBC 13.4 H RBC 3.34 L Hgb 9.9 L Hct 29.8 L MCV 89.2 MCH 29.6 MCHC 33.2 RDW 13.7 Plt Count 257 MPV 10.5 Immature Gran % 0.5 Seg Neutrophils % 71.1 Lymphocytes % 19.0 Monocytes % 6.6 Eosinophils % 2.7 Basophils % 0.1 Neutrophils # 9.5 H Lymphocytes # 2.6 Monocytes # 0.9 Eosinophils # 0.4 Basophils # 0.0
[2018-09-12] MEDS: *HR* Enoxaparin 80 MG/0.8 ML SYRINGE SQ SCH ×2 (13:15→20:26)
[2018-09-12] MEDS: *HR* Buprenorphine HCl 2 MG SUBLINGUAL TABLET SL SCH (20:26)
[2018-09-13] MEDS: *HR* Enoxaparin 80 MG/0.8 ML SYRINGE SQ SCH ×2 (07:40→19:54)
[2018-09-13] MEDS: *HR* OxyCODONE/APAP 5/325 TABLET PO PRN ×4 (07:41→20:54)
[2018-09-13] MEDS: *HR* Buprenorphine HCl 8 MG TAB.SUBL SL SCH ×2 (07:41→15:02)
[2018-09-13] MEDS: Prenatal Vit/FA 1 EACH TABLET PO SCH (07:41)
[2018-09-13] MEDS: Ibuprofen 600 MG TABLET PO PRN ×3 (09:33→23:03)
--- NOTE | 2018-09-13 17:33 | OB/GYN Progress Note ---
Date of Encounter: 09/13/18 Time of Encounter: 17:31 - Assessment and Plan (1) Status post primary low transverse section Current Visit: Yes Status: Acute Patient meeting day two milestones. Pain well-controlled with prescribed medications. Voiding without difficulty, tolerating regular diet, bleeding light. No bowel movement yet. Anticipate discharge tomorrow (2) Breast feeding status of mother Current Visit: Yes Status: Acute support as needed. Patient requests a breast pump prescription (3) Opiate addiction Current Visit: Yes Status: Acute Continue Subutex as ordered. Patient is to follow-up with her Subutex provider for continued therapy. Qualifiers: Substance use status: in remission Qualified Code(s): F11.21 - Opioid dependence, in remission (4) Acute blood loss as cause of postoperative anemia Current Visit: Yes Status: Acute Continue daily iron Patient is asymptomatic with hemoglobin of 9.9 Subjective - Subjective Principal diagnosis: Status post section Interval history: Patient doing well today. Her milk is coming in and she is tolerating ambulation well. Plan to discharge tomorrow. Date of procedure: 09/10/18 Preop diagnosis: other ( section per maternal request, inability to tolerate pain) Post-op diagnosis: same Procedure: section, primary low transverse Surgeon: Rhoda Meyers Quantitated Blood Loss: 600 Was there an tutoring assistant present: Yes Coil Cutter: Prabhjot Bentley Anesthesia Type: General section complications: none Disposition: L&D Recovery Room Specimens: Placenta, Cord blood - Infant (s) Infant A Infant Delivery Date: 09/10/18 Infant Delivery Time: 13:34 Presentation: vertex Gender: Male Gram Weight: 2.99 kg at 1 minute: 8 at 5 minutes: 9 Shoulder Dystocia: not encountered Specimens collected: cord blood Placenta: complete extraction - Narrative Narrative: After the patient was brought to the OR, she was prepped and draped in normal fashion, in the supine position, for surgery. After timeout, she was then placed under general anesthesia. A Pfannenstiel incision was then made using a scalpel and carried through the subcutaneous tissue and fascial layers. The fascia was elevated using Kochers x2 and the rectus abdominus muscles were dissected from the fascia using blunt dissection. The recti were in the midline and the parietal peritoneum was entered bluntly. A bladder blade was placed and a low transverse uterine incision was made using a scalpel. Amniotomy was created with clear fluid. The incision was extended manually. The was delivered atraumatically. The babys mouth and nose were suctioned using bulb suction. The cord was clamped x2 and cut. The baby was handed off to the awaiting nurse. Cord blood was obtained x1. Vessels were identified x3. The placenta was delivered intact. Products of conception were removed using a clean dry lap. The uterus was closed in 2 layers of 0 Vicryl, the first being a continuous interlocking stitch, the second of which imbricated the first. Adequate hemostasis was realized. The fascial layer was closed using #0-vicryl. Subcutaneous tissue was closed with 3-0 vicryl. The skin was closed with a subcuticular stitch of 4-0 Vicryl. Sponge, lap, needle and instrument counts were all completely correct at the end of the procedure. Estimated blood loss was 600 mL. The patient and tolerated the procedure fairly well. Patient reports: appetite normal, voiding normally, pain well controlled, ambulating normally [place]: doing well, nursing well Objective - Vital Signs Latest vital signs: Vital Signs Temp Pulse Resp BP Pulse Ox 09/13/18 07:35 98.6 F 91 14 105/70 100 09/12/18 20:30 98.1 F 88 16 113/70 100 Intake and Output 09/13/18 09/13/18 09/13/18 07:59 15:59 23:59 Intake Total 650 / 1010 360 / 1010 Output Total 1000 / 1000 Balance 650 / 10 -640 / 10 Intake: Oral 650 / 1010 360 / 1010 Output: Urine 1000 / 1000 Other: Meal Lunch Percent of Meal Consumed 100% # Voids 2 - Exam Lungs: bilateral: normal Chest: Normal S1, Normal S2 Extremities: Present: normal, edema Abdomen: Present: normal appearance, soft. Absent: distention, tenderness Incision: Present: normal, dry, intact, dressed (steri strips) Uterus: Present: normal, firm Fundal Height: 1 (U/1)
[2018-09-13] MEDS: Acetaminophen 325 MG TABLET PO PRN (19:52)
[2018-09-13] MEDS: *HR* Buprenorphine HCl 2 MG SUBLINGUAL TABLET SL SCH (19:52)
[2018-09-14] MEDS: *HR* OxyCODONE/APAP 5/325 TABLET PO PRN ×3 (00:56→10:05)
[2018-09-14 07:52] VITALS: BP 99/54
[2018-09-14] MEDS: Prenatal Vit/FA 1 EACH TABLET PO SCH (08:06)
[2018-09-14] MEDS: Ibuprofen 600 MG TABLET PO PRN (08:06)
[2018-09-14] MEDS: *HR* Buprenorphine HCl 8 MG TAB.SUBL SL SCH (08:06)
[2018-09-14] MEDS: *HR* Enoxaparin 80 MG/0.8 ML SYRINGE SQ SCH (08:07)
--- NOTE | 2018-09-14 08:10 | Discharge Summary ---
Date of Encounter: 09/14/18 Time of Encounter: 08:08 - Discharge Diagnosis (1) 39 weeks gestation of Priority: Primary Status: Acute Comments: 23 y/o s/p PC/S for pain intolerance, h/o spine surgery (no epidural), h/o factor V leiden mutation (on Lovenox) Plan: Patient is doing well, ambulating, no vaginal bleeding, tolerating PO intake, ok for discharge, she has Lovenox at home and will be following up with her Subutex Provider - Discharge Medications Prescriptions: New Breast Pump [BREAST PUMP] 1 each .ROUTE AD #1 each No Action Buprenorphine HCl [Subutex] 10 mg SL BID Enoxaparin [Lovenox] 80 mg SQ Q12HR Home Medications: Buprenorphine HCl [Subutex] 10 mg SL BID 06/03/18 [History] Enoxaparin [Lovenox] 80 mg SQ Q12HR 07/08/18 [History] Breast Pump [BREAST PUMP] 1 each .ROUTE AD #1 each 09/13/18 [Rx] Allergies/Adverse Reactions: Allergy/AdvReac Type Severity Reaction Status Date / Time amitriptyline Allergy See Verified 09/10/18 04:11 Comments Amoxicillin Allergy Anaphylaxis Verified 07/08/18 22:12 baclofen Allergy See Verified 09/10/18 04:13 Comments citalopram [From Celexa] Allergy Vomiting Verified 09/10/18 04:13 duloxetine [From Cymbalta] Allergy Nausea Verified 09/10/18 04:13 fentanyl Allergy Hives Verified 07/08/18 22:12 gabapentin [From Neurontin] Allergy Nausea Verified 09/10/18 04:13 orphenadrine [From Norflex] Allergy Hives Verified 07/08/18 22:12 pregabalin [From Lyrica] Allergy Hives Verified 07/08/18 22:12 dexamethasone [From Decadron] AdvReac Vomiting Verified 07/08/18 22:12 ketorolac [From Toradol] AdvReac Vomiting Verified 07/08/18 22:12 meloxicam [From Mobic] AdvReac Nausea Verified 07/08/18 22:12 AMITR Allergy See Uncoded 09/10/18 04:11 Comments plastic tape AdvReac Rash Uncoded 07/08/18 22:12 Data Procedures and tests throughout hospitalization: Laboratory Tests 09/10/18 09/10/18 09/11/18 04:15 04:15 06:02 WBC 11.8 H 15.5 H RBC 4.15 3.35 L Hgb 12.0 9.9 L D Hct 36.3 29.6 L MCV 87.5 88.4 MCH 28.9 29.6 MCHC 33.1 33.4 RDW 12.9 13.1 Plt Count 267 226 MPV 10.7 10.3 Immature Gran % 0.8 0.4 Seg Neutrophils % 64.9 88.3 Lymphocytes % 24.3 6.5 Monocytes % 7.0 4.5 Eosinophils % 2.8 0.2 Basophils % 0.2 0.1 Neutrophils # 7.7 13.7 H Lymphocytes # 2.9 1.0 Monocytes # 0.8 0.7 Eosinophils # 0.3 0.0 Basophils # 0.0 0.0 Urine Opiates Screen Negative Ur Buprenorphine Scrn Positive H Ur Barbiturates Screen Negative Ur Phencyclidine Scrn Negative Ur Amphetamines Screen Negative U Benzodiazepines Scrn Negative Urine Cocaine Screen Negative U Marijuana (THC) Screen Negative Ur Drug Screen Interp See Below 09/12/18 07:06 WBC 13.4 H RBC 3.34 L Hgb 9.9 L Hct 29.8 L MCV 89.2 MCH 29.6 MCHC 33.2 RDW 13.7 Plt Count 257 MPV 10.5 Immature Gran % 0.5 Seg Neutrophils % 71.1 Lymphocytes % 19.0 Monocytes % 6.6 Eosinophils % 2.7 Basophils % 0.1 Neutrophils # 9.5 H Lymphocytes # 2.6 Monocytes # 0.9 Eosinophils # 0.4 Basophils # 0.0 Urine Opiates Screen Ur Buprenorphine Scrn Ur Barbiturates Screen Ur Phencyclidine Scrn Ur Amphetamines Screen U Benzodiazepines Scrn Urine Cocaine Screen U Marijuana (THC) Screen Ur Drug Screen Interp Date of admission: 09/10/18 03:36 Primary care physician: PCP NONE Consults: 09/10/18 03:51 Consult to Casting Machine Set Up Operator ([employer]) [CONS] Routine Reason For Exam: Reason for SW Consult: Subutex group 09/10/18 16:47 Consult to Search Director [CONS] Routine Comment: Vaginal delivery, consult needed - Patient Status Disposition: Home, Self-Care Condition: Good Overall status at discharge: patient is progressing back to baseline - Discharge Instructions Follow Up With: NONE,PCP [Primary Care Provider] - Hospital Course ROCK CRUSHER OPERATOR Time Attestation: Total time spent providing and/or coordinating discharge services: Exam - Constitutional Vitals: Temp Pulse Resp BP Pulse Ox 98.1 F 87 16 99/54 99 09/14/18 07:51 09/14/18 07:51 09/14/18 07:51 09/14/18 07:51 09/13/18 19:45 General appearance IM: A&O X 3 - Respiratory Respiratory exam: Present: CTAB - Cardiovascular Cardiovascular exam IM: Present: RRR - GI/Abdominal GI/Abdominal exam IM: normal bowel sounds, soft Incision: normal - VTE Reasons for not Prescribing Prophylaxis: Treatment not Indicated - Low risk for VTE Documentation of Mechanical Device: Intermittent pneumatic compression device
== END 2018-09-14 10:30 | disposition home or self-care (01) | DRG 540 ==
LOC: 1NENULAB 03:36 → 1NENUOBS 16:45
PROVIDERS: ADMIT Student in an Organized Health Care Education/Training Program; ATTEND Student in an Organized Health Care Education/Training Program